=== PATIENT | male | born 1985 | race Caucasian/White ===

== ENCOUNTER 2017-05-31 00:37 | Emergency (ER) | payer OTHER ==
[~2017-05-31] VITALS: Ht 177.8 cm; Wt 98.9 kg
[2017-05-31 00:39] VITALS: Ht 177.8 cm; Wt 98.9 kg
[2017-05-31 02:46] VITALS: BP 137/65; PULSE 92; TEMP 36.8; O2SAT 98
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
== END 2017-05-31 02:46 | disposition home or self-care (01) ==
LOC: C.EDB 00:39 → C.EDC 02:46
DX: S02.2XXA Fracture of nasal bones, initial encounter for closed fracture (principal); S00.81XA Abrasion of other part of head, initial encounter; Y04.0XXA Assault by unarmed brawl or fight, initial encounter; Y93.89 Activity, other specified; Y92.89 Other specified places as the place of occurrence of the external cause